=== PATIENT | male | born 1945 | race Caucasian/White ===

== ENCOUNTER 2019-12-25 07:48 | Observation (INO) | payer MEDICARE ==
[2019-12-21 10:42] LABS: BASOPHILS # (AUTO) 0.1 (0.0-0.1); BASOPHILS % 1.3 % (0.0-1.0); EOSINOPHILS # (AUTO) 0.7 (0.0-0.4); EOSINOPHILS % 12.4 % (0.0-6.0); HEMATOCRIT 45.1 % (38.2-49.6); HEMOGLOBIN 15.2 g/dL (14.0-18.0); LYMPHOCYTES # (AUTO) 1.3 (1.0-3.2); LYMPHOCYTES % 24.1 % (18.0-39.1); MEAN CORPUSCULAR HGB CONC 33.7 g/dL (31-35); MEAN CORPUSCULAR VOLUME 85.9 fL (81-99); MONOCYTES # (AUTO) 0.5 (0.2-0.8); NEUTROPHILS # (AUTO) 2.8 (2.1-6.9); PLATELET COUNT 167 x10e3/uL (140-360); RED BLOOD COUNT 5.25 x10e6/uL (4.3-5.7)
--- NOTE | 2019-12-21 10:58 | Diagnostic Imaging Report ---
EXAMINATION: CHEST 2 VIEWS INDICATION: Pre-operative COMPARISON: None FINDINGS: LINES/TUBES:None LUNGS:Lungs are mildly hyperinflated. No focal consolidation or pulmonary edema. PLEURA:No pleural effusion or pneumothorax. MEDIASTINUM:The cardiomediastinal silhouette appears normal in size and shape. BONES/SOFT TISSUES:No acute osseous injury. ABDOMEN:No free air under the diaphragm. IMPRESSION: Mildly hyperinflated lungs. No focal pneumonia or pulmonary edema. Signed by: Tyrel Hernandez MD on 12/21/2019 10:56 AM
[~2019-12-25] VITALS: Ht 175.3 cm; Wt 99.0 kg
[~2019-12-25 07:48] MED LIST: BACITRACIN 50,000 UNIT VIAL ONE; CELECOXIB200 MG PO; CENTRUM SILVER1 EAC6 PO; ECOTRIN325 MG PO; FLOMAX0.4 MG PO; LOSARTAN POTAS100 MG PO; SODIUM CHLORIDE 0.9% 500ML 500 ML ONE; TRANEXAMIC ACID 1,000 MG/10 ML ML ONE; TURMERIC1 GM PO; VANCOMYCIN HCL 1,000 MG ONE; [UNRECOGNIZED DRUG - OTHER] PO; [UNRECOGNIZED DRUG - OTHER] PO
--- OUTSIDE RECORDS SUMMARY | 2019-12-25 07:50 | XMS REPORT ---
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 Allergies, Adverse Reactions, Alerts Allergy Name Allergy Type Status Severity Reaction(s) Onset Date Inactive Date Treating Clinician Comments No Known Allergies DA Active U 2019-02-02 00:00:00 No Known Allergies DA Active U 2014-02-21 00:00:00 Medications This patient has no known medications. Encounters Start Date/Time End Date/Time Encounter Type Admission Type Attending Clinicians Care Facility Care Department Encounter ID 2018-01-31 12:00:00 Inpatient PATO MCG[facility] [place] [id number] 2018-03-14 08:02:00 2018-03-14 09:42:00 Outpatient PATO MCGEE [facility] – [place] [id number] Results Test Description Test Time Test Comments Text Results Atomic Results Result Comments CHEST 2 VIEWS 2019-12-21 10:55:00 [facility] [address] [place] [id number] Patient Name: JUNITO CAVAZOS MR #: [id number] : 1945 Age/Sex: 74/M Req #: [id number] Adm Physician: Ordered by: LIZBETH HIGH MD Report #: [id number] Location: OR Room/Bed: Procedure: [id number] DX/CHEST 2 VIEWS Exam Date: 12/21/19 Exam Time: 1021 REPORT STATUS: Signed EXAMINATION: CHEST 2 VIEWS INDICATION: Pre-operative COMPARISON: None FINDINGS: LINES/TUBES:None LUNGS:Lungs are mildly hyperinflated. No focal consolidation or pulmonary edema. PLEURA:No pleural effusion or pneumothorax. MEDIASTINUM:The cardiomediastinal silhouette appears normal in size and shape. BONES/SOFT TISSUES:No acute osseous injury. ABDOMEN:No free air under the diaphragm. IMPRESSION: Mildly hyperinflated lungs. No focal pneumonia or pulmonary edema. Signed by: Shoaib Cordero MD on 12/21/2019 10:56 AM Dictated By: SHOAIB CORDERO MD 1056 Transcribed By: PATRICK on 12/21/19 1056 COPY TO: LIZBETH HIGH MD - XR KNEE 4 + V LT 2019-12-05 12:03:00 FAX: Kenroy Ling DO [phone] [place]: [address] St: REG Name: JUNITO CAVAZOS [facility] : 1945 Age/S: 74/M [address] Unit #: [id number] Loc: [place] [address] Phys: Kenroy Ortega DO Acct: [id number] Dis Date: Status: REG CLI PHONE #: [phone] Exam Date: 12/05/2019 1114 FAX #: [phone] Reason: M25.562 EXAMS: CPT CODE: [id number] XR KNEE 4 + V LT 43528 CLINICAL HISTORY: M25.562 TECHNIQUE: 4 views of the left knee COMPARISON: None FINDINGS: There is no fracture or dislocation. There is severe narrowing of the knee joint that is most pronounced in the medial compartment. There are also small to moderate-sized osteophytes in the knee joint. Small knee joint effusion is present. IMPRESSION: Severe degenerative changes of the left knee with small joint effusion but no acute fracture. Location: [facility] at 1203 Reported and signed by: Alex Chen MD CC: Kenroy Ortega Technologist: JASS Carvalho) Trnscrd Date/Time/By: 12/05/2019 (1951) : By: [email or web address] Orig Print D/T: S: 12/05/2019 (5935) PAGE 1 Signed Report - XR HIP W/PEL UNI 2+V LT 2019-12-05 12:02:00 FAX: Kenroy Ling DO [phone] [place]: O St: REG Name: JUNITO CAVAZOS [facility] : 1945 Age/S: 74/M [address] [facility] Unit #: [id number] Loc: [place] [address] Phys: Kenroy Ortega DO Acct: [id number] Dis Date: Status: REG CLI PHONE #: [phone] Exam Date: 12/05/2019 1114 FAX #: [phone] Reason: EXAMS: CPT CODE: [id number] XR HIP W/PEL UNI 2+V LT 91148 HISTORY: Hip pain EXAM: AP pelvis as well as AP and frog-leg views of the left hip Comparison: CT of the abdomen and pelvis June 02, 2015 which includes the hips FINDINGS: No acute fracture of the bony pelvis. No diastases of the SI joints or pubic symphysis. There are degenerative changes in the bilateral hip joints. Additionally there appears to be aspherical morphology of the femoral head with a bone protrusion along the superior aspect of the femoral head. Degenerative changes are present on the lumbar spine. 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 Correlate clinically for femoral acetabular impingement. Location: [facility] at 1202 Reported and signed by: Alex Chen MD CC: Kenroy Ortega Technologist: RT Maia(Ranjan) Trnscrd Date/Time/By: 12/05/2019 (3935) : By: [email or web address] Orig Print D/T: S: 12/05/2019 (0314) PAGE 1 Signed Report - XR L-SPINE 2/3 VIEWS 2019-12-05 11:59:00 FAX: Kenroy Ling DO [phone] [place]: O St: REG Name: JUNITO CAVAZOS [facility] : 1945 Age/S: 74/M [address] [facility] Unit #: [id number] Loc: [place] [address] Phys: Kenroy Ortega DO Acct: [id number] Dis Date: Status: REG CLI PHONE #: [phone] Exam Date: 12/05/2019 1114 FAX #: [phone] Reason: EXAMS: CPT CODE: [id number] XR L-SPINE 2/3 VIEWS 20626 HISTORY: Back pain TECHNIQUE: AP, lateral, and lumbosacral views of the lumbar spine. Comparison:CT of the abdomen and pelvis June 02 which includes the lumbar spine FINDINGS: No acute fracture or subluxation. Vertebral body alignment is satisfactory. Vertebral body heights are preserved. Disc spaces are preserved. Small to moderate-sized vertebral body osteophytes are present in the lumbar spine. There is facet hypertrophy in the lower lumbar spine. No evident paraspinal soft tissue contour abnormality. IMPRESSION: Degenerative changes of the lumbar spine but no fracture or malalignment. Location: [facility] at 1159 Reported and signed by: Alex Chen MD CC: Kenroy Ortega Technologist: RT Maia(Ranjan) Trnscrd Date/Time/By: 12/05/2019 (4984) : By: [email or web address] Orig Print D/T: S: 12/05/2019 (5842) PAGE 1 Signed Report BASIC METABOLIC PANEL 2019-02-02 15:32:00 SODIUM (test code=NA) 139 mmol/L 136-145 POTASSIUM (test code=K) 4.1 mmol/L 3.5-5.1 CHLORIDE (test code=CL) 105.0 mmol/L 98-107 CARBON DIOXIDE (test code=CO2) 28.0 mmol/L 21-32 ANION GAP (test code=GAP) 10.1 10-20 GLUCOSE (test code=GLU) 95 mg/dL 74-106 BLOOD UREA NITROGEN (test code=BUN) 18 mg/dL 7-18 GLOMERULAR FILTRATION RATE (test code=GFR) 54 mL/min >=60 Estimated GFR by using Modified MDRD formula.Chronic kidney disease is defined as either kidney damageor GFR <60 mL/min/1.73 m2 for >3 months. CREATININE (test code=CREAT) 1.30 mg/dL 0.7-1.3 BUN/CREATININE RATIO (test code=BUN/CREA) 13.8 10-20 CALCIUM (test code=CA) 8.8 mg/dL 8.5-10.1 BASIC METABOLIC [id number] 15:06:00* Test Item Value Reference Range Comments SODIUM (test code=NA) 139 mmol/L 136-145 POTASSIUM (test code=K) 4.1 mmol/L 3.5-5.1 CHLORIDE (test code=CL) 105.0 mmol/L 98-107 CARBON DIOXIDE (test code=CO2) mmol/L 21-32 ANION GAP (test code=GAP) 10-20 GLUCOSE (test code=GLU) mg/dL 74-106 BLOOD UREA NITROGEN (test code=BUN) mg/dL 7-18 GLOMERULAR FILTRATION RATE (test code=GFR) mL/min >=60 CREATININE (test code=CREAT) mg/dL 0.7-1.3 BUN/CREATININE RATIO (test code=BUN/CREA) 10-20 CALCIUM (test code=CA) mg/dL 8.5-10.1 - XR KNEE 3 V [id number] 14:42:00 FAX: Won Almanza DO [place]: [address] St: REG Name: JUNITO COATES [facility] : [birth year] Age/S: 73/M [address] [facility] Unit #: [id number] Loc: [place] [address] Phys: Won Almanza DO Acct: [id number] Dis Date: Status: REG ER PHONE #: [phone] Exam Date: 02/02/2019 1420 FAX #: [phone] Reason: PAIN EXAMS: CPT CODE: [id number] XR KNEE 3 V LT [address] EXAM: Left knee, 3 views; INFORMATION: Painful swelling; FINDINGS: There is almost complete obliteration of the medial compartment of the joint space asso ciated with subchondral sclerosis and marginal osteophyte formation. Small osteophytes also seen along the superior and inferior edge of the p atella. Otherwise, imaged bones are intact; no evidence of fracture or dislocation. Periarticular soft tissues are unremarkable; no radiopaque foreign bodies. IMPRESSION: 1. Advanced osteoarth ritis of the left knee joint, involving primarily the medial compartment . 2. No evidence of acute osseous trauma. Valdemar gordon Signed by John Payne on 02/02/2019 a t 3632 Reported and signed by: Brendon Desai ch, M.D. CC: Won Almanza DO Technologist: Nan Marroquin(R); DIANA ADAMS (R) Yumiko scrd Date/Time/By: 02/02/2019 (1442) : By: Jillian Orig Print D/T: S : 02/02/2019 (5631) PAGE 1 Signed Report CBC W/AUTO [id number] 14:40:00* Test Item Value Reference Range Comments WHITE BLOOD CELL (test code=WBC) 4.8 K/mm3 4.5-12.5 RED BLOOD CELL (test code=RBC) 4.69 mill/mm3 4.0-5.8 HEMOGLOBIN (test code=HGB) 13.5 gram/dL 13.0-17.5 HEMATOCRIT (test code=HCT) 41.6 % 42.0-52.0 MEAN CELL VOLUME (test code=MCV) 88.7 fL 80-98 MEAN CELL HGB (test code=MCH) 28.6 picogram 27.0-33.0 MEAN CELL HGB CONCETRATION (test code=MCHC) 32.2 gram/dL 33.0-36.0 RED CELL DISTRIBUTION WIDTH (test code=RDW) 12.9 % 11.6-16.2 RED CELL DISTRIBUTION WIDTH SD (test code=RDW-SD) 42.1 fL 37.0-51.0 PLATELET COUNT (test code=PLT) 138 K/mm3 150-450 MEAN PLATELET VOLUME (test code=MPV) 10.1 fL 6.7-11.0 NEUTROPHIL % (test code=NT%) 50.7 % 39.0-69.0 IMMATURE GRANULOCYTE % (test code=IG%) 0.2 % 0.0-5.0 LYMPHOCYTE % (test code=LY%) 24.2 % 25.0-55.0 MONOCYTE % (test code=MO%) 10.6 % 0.0-10.0 EOSINOPHIL % (test code=EO%) 13.3 % 0.0-5.0 BASOPHIL % (test code=BA%) 1.0 % 0.0-1.0 NUCLEATED RBC % (test code=NRBC%) 0.0 % 0-0 NEUTROPHIL # (test code=NT#) 2.45 K/mm3 1.8-7.7 IMMATURE GRANULOCYTE # (test code=IG#) 0.01 x10 3/uL 0-0.03 LYMPHOCYTE # (test code=LY#) 1.17 K/mm3 1.0-5.0 MONOCYTE # (test code=MO#) 0.51 K/mm3 0-0.8 EOSINOPHIL # (test code=EO#) 0.64 K/mm3 0.0-0.5 BASOPHIL # (test code=BA#) 0.05 K/mm3 0.0-0.2 NUCLEATED RBC # (test code=NRBC#) 0.00 K/mm3 0.0-0.1 MANUAL DIFF REQUIRED (test code=MDIFF) NO CBC W/AUTO [id number] 14:33:00* Test Item Value Reference Range Comments WHITE BLOOD CELL (test code=WBC) K/mm3 4.5-12.5 RED BLOOD CELL (test code=RBC) mill/mm3 4.0-5.8 HEMOGLOBIN (test code=HGB) 13.5 gram/dL 13.0-17.5 HEMATOCRIT (test code=HCT) % 42.0-52.0 MEAN CELL VOLUME (test code=MCV) fL 80-98 MEAN CELL HGB (test code=MCH) picogram 27.0-33.0 MEAN CELL HGB CONCETRATION (test code=MCHC) gram/dL 33.0-36.0 RED CELL DISTRIBUTION WIDTH (test code=RDW) % 11.6-16.2 RED CELL DISTRIBUTION WIDTH SD (test code=RDW-SD) fL 37.0-51.0 PLATELET COUNT (test code=PLT) K/mm3 150-450 MEAN PLATELET VOLUME (test code=MPV) fL 6.7-11.0 NEUTROPHIL % (test code=NT%) % 39.0-69.0 IMMATURE GRANULOCYTE % (test code=IG%) % 0.0-5.0 LYMPHOCYTE % (test code=LY%) % 25.0-55.0 MONOCYTE % (test code=MO%) % 0.0-10.0 EOSINOPHIL % (test code=EO%) % 0.0-5.0 BASOPHIL % (test code=BA%) % 0.0-1.0 NEUTROPHIL # (test code=NT#) K/mm3 1.8-7.7 LYMPHOCYTE # (test code=LY#) K/mm3 1.0-5.0 MONOCYTE # (test code=MO#) K/mm3 0-0.8 EOSINOPHIL # (test code=EO#) K/mm3 0.0-0.5 BASOPHIL # (test code=BA#) K/mm3 0.0-0.2
[2019-12-25] MEDS ORDERED: ROPIVACAINE 246.25 MG, EPINEPHRINE HCL 1:1000 1ML 0.5 MG, CLONIDINE HCL 0.08 MG, KETORO... INJ ONE ×5 (08:00)
[2019-12-25] MEDS ORDERED: DEXAMETHASONE SOD PHOS 10 MG/1 ML VIAL ONE (09:01)
[2019-12-25] MEDS ORDERED: GABAPENTIN 300 MG CAP ONE (09:01)
[2019-12-25] MEDS ORDERED: CELECOXIB 200 MG CAP ONE (09:01)
[2019-12-25] MEDS ORDERED: CEFAZOLIN SOD 1 GM/NS 50ML 100 ML IV ONE (09:02)
[2019-12-25] MEDS ORDERED: ALBUMIN 25% 12.5GM 50ML 200 ML IV ONE (11:56)
[2019-12-25] MEDS ORDERED: DIPHENHYDRAMINE HCL INJ 50 MG/ML VIAL IM/IV PRN (13:00)
[2019-12-25] MEDS ORDERED: PROMETHAZINE HCL (IM) 25 MG/ML VIAL INJ PRN (13:00)
[2019-12-25] MEDS ORDERED: DOCUSATE SODIUM 100 MG CAP PO PRN (13:00)
[2019-12-25] MEDS ORDERED: ACETAMINOPHEN 650 MG SUPP PR PRN (13:00)
[2019-12-25] MEDS ORDERED: ZOLPIDEM TARTRATE 5 MG TAB PO PRN (13:00)
[2019-12-25] MEDS ORDERED: HYDROCODONE/APAP 7.5MG-325MG 1 EA TAB PO PRN (13:00)
[2019-12-25] MEDS ORDERED: ONDANSETRON HCL INJ 2MG/ML 2ML 2 MG/ML VIAL IV PRN (13:00)
[2019-12-25] MEDS ORDERED: HYDROCODONE/APAP 5MG-325MG TAB PO PRN (13:00)
[2019-12-25] MEDS ORDERED: KETOROLAC TROMETHAMINE 30 MG/ML VIAL IV PRN (13:00)
[2019-12-25] MEDS ORDERED: FENTANYL CITRATE/PF 100MCG/2 ML INJ ONE ×2 (13:30→18:50)
[2019-12-25] MEDS ORDERED: HYDROMORPHONE 1MG/1ML INJ ONE (13:46)
--- NOTE | 2019-12-25 16:10 | Diagnostic Imaging Report ---
Exam: Left knee 2 views Clinical history: Postop Findings: The patient is status post left total knee arthroplasty. The joint prosthesis appear in its expected location. There is no evidence of acute fracture or malalignment. Impression: 1. Status post left total knee arthroplasty with postoperative changes. Signed by: Dr. Romulo Vasquez MD on 12/25/2019 4:08 PM
[2019-12-25] MEDS: ASPIRIN 325 MG TAB PO SCH (17:00)
[2019-12-25] MEDS ORDERED: ACETAMINOPHEN 1000 MG/100 ML IV SCH (18:00)
--- NOTE | 2019-12-25 18:20 | NUR ---
Received patient from PACU patient arrived in stretcher able to transfer from stretcher to bed used weight bearing leg and bunny hop, patient is alert and oriented x3, verbalizing needs, denies pain rating 0/10 patient does have a left knee block, placed on foot pumps per order and notified Dr. Heard for medical management. Patient oriented to room and use of call light instructed to call when needing assistance verbalized understanding. Belongings and call light within reach bed in low position breaks on.
[2019-12-25] MEDS ORDERED: ROPIVACAINE 0.5% 5 MG/ML 30 ML SDV ONE (18:46)
[2019-12-25] MEDS ORDERED: PROMETHAZINE 12.5MG/ NACL 0.9% 50 ML IV PRN (19:00)
[2019-12-25 19:17] VITALS: BP 111/62
--- NOTE | 2019-12-25 19:18 | NUR ---
Handoff report to oncoming nurse made aware patient is orthopedic patient, and has orders to be place on CPM, verbalized understanding.
[2019-12-25 19:22] VITALS: BP 111/62
[2019-12-25 19:25] VITALS: BP 111/62
[2019-12-25] MEDS: CEFAZOLIN SOD 1 GM/NS 50ML 50 ML IV SCH (19:35)
[2019-12-25] MEDS: ACETAMINOPHEN 1000 MG/100 ML 100 ML IV SCH (19:35)
[2019-12-25] MEDS: CELECOXIB 100 MG CAP PO SCH (19:35)
[2019-12-25] MEDS: SODIUM CHLORIDE 0.9% 1000ML 1,000 ML IV SCH (19:35)
[2019-12-25 21:00] VITALS: BP 111/62
[2019-12-26] MEDS: SODIUM CHLORIDE 0.9% 1000ML 1,000 ML IV SCH ×2 (00:26→07:04)
[2019-12-26] MEDS: ACETAMINOPHEN 1000 MG/100 ML 100 ML IV SCH ×2 (00:53→06:59)
[2019-12-26 01:13] VITALS: BP 130/75
[2019-12-26] MEDS: CEFAZOLIN SOD 1 GM/NS 50ML 50 ML IV SCH ×2 (03:00→10:30)
[2019-12-26 04:00] VITALS: BP 156/97
[2019-12-26 05:08] LABS: HEMATOCRIT 37.6 % (38.2-49.6); HEMOGLOBIN 12.7 g/dL (14.0-18.0)
[2019-12-26 07:24] VITALS: BP 149/88
[2019-12-26 07:27] VITALS: BP 149/88
[2019-12-26] MEDS: CELECOXIB 100 MG CAP PO SCH (08:09)
[2019-12-26] MEDS: ASPIRIN 325 MG TAB PO SCH (08:09)
[2019-12-26 08:35] VITALS: BP 146/64
--- NOTE | 2019-12-26 08:42 | NUR ---
DR BARDALES OFFICE PREARRANGED FOLLOWING DISCHARGE PLAN OF: RETURNING [id number], [facility] [phone] HOME HEALTH WITH HOME CARE PROVIDERS CONFIRMED WITH FÁTIMA IN PERSON DME CPM AND ROLLING WALKER WITH WHEELS. PROVIDED BY [email or web address] [phone] TERRANCE SIGNED AND ON CHART COPY LEFT WITH PATIENT GAVE CARD FOR QUESTIONS AND OR CONCERNS.
[2019-12-26] MEDS ORDERED: LOSARTAN POTASSIUM 100 MG TAB PO SCH (09:00)
[2019-12-26] MEDS ORDERED: TAMSULOSIN HCL 0.4 MG CAP PO SCH (09:00)
[2019-12-26 10:39] VITALS: BP 142/85
--- NOTE | 2019-12-26 12:14 | Consultation ---
DATE OF CONSULTATION: 12/26/2019 REASON FOR CONSULTATION: Postoperative medical management. HISTORY OF PRESENT ILLNESS: The patient is a 74-year-old gentleman, status post left knee arthroplasty for end-stage arthritis of the left knee. He is doing well postoperatively and complains of minimal pain. He denies any fever, chills, nausea, vomiting, headache, shortness of breath, or dizziness on review of systems. PAST MEDICAL HISTORY: Hypertension, BPH, and osteoarthritis. MEDICATIONS: 1. Flomax. 2. Losartan. 3. Celebrex. 4. Tessalon Perles. SOCIAL HISTORY: He is a nonsmoker and nondrinker. FAMILY HISTORY: Noncontributory. ALLERGIES: NONE. PHYSICAL EXAMINATION: VITAL SIGNS: Temperature 97.0, pulse 75, blood pressure 156/97, sats 98% on room air. GENERAL: No apparent distress. NECK: Supple. CARDIOVASCULAR: Regular rate and rhythm. LUNGS: Clear to auscultation bilaterally. ABDOMEN: Good bowel sounds. Soft, nontender. EXTREMITIES: No clubbing, cyanosis. NEUROLOGIC: Nonfocal. ASSESSMENT/PLAN: 1. Left knee pain, continue with pain control. 2. Anemia, we will check CBC. 3. Hypertension, continue with current medicines. 4. Benign prostatic hyperplasia, we will continue with Flomax. 5. Obesity, continue with diet. Please see hospital chart for full details. MD TIFFANY Interiano/HAYDEE /[id number]
[2019-12-26] MEDS ORDERED: ACETAMINOPHEN 1000 MG/100 ML IV PRN (13:00)
--- NOTE | 2019-12-26 15:36 | Operative Report ---
DATE OF PROCEDURE: 12/25/2019 SURGEON: Andres Dale MD HEAD OF MATHEMATICS: Tim Shearer, certified PA. PREOPERATIVE DIAGNOSIS: Osteoarthritis, left knee. POSTOPERATIVE DIAGNOSIS: Osteoarthritis, left knee. PROCEDURE: Left total knee arthroplasty. INDICATIONS: The patient is a 74-year-old gentleman, who has end-stage arthritis of his left knee. He has failed conservative management and would like to proceed with a left total knee replacement. The risks and benefits have been discussed. He states he understands and wishes to proceed. PROCEDURE IN DETAIL: The patient was brought to the operating room and placed under general anesthetic. He received a regional block, prophylactic antibiotics, and tranexamic acid in the holding area. His left lower extremity was prepped and draped in a sterile manner. A preoperative time-out was performed. The extremity was exsanguinated and a proximal tourniquet was inflated to 300 mmHg. An anterior incision with a medial parapatellar arthrotomy was performed. Clear synovial fluid was removed from the joint. Soft tissue releases were performed to bring the knee up into flexion with the patella everted. Meniscal remnants, the cruciate ligaments, and marginal osteophytes were all removed. A [employer] Crateet Persona Knee System was used. An extramedullary cutting guide was used to resect the proximal tibia. The tibial base plate was a size G. The central fin punch was drilled and impacted. Attention was directed towards the distal femur. An intramedullary cutting guide was used to resect the distal femur in 6 degrees of valgus and rotation referencing off a combination of landmarks including Whitesides line, the epicondylar axis, and the posterior condyles. The femoral component was a size 11. The anterior and posterior cuts were made. A trial reduction was performed. A 10 mm medial congruent tibial insert provided appropriate soft tissue balancing in full extension and 90 degrees of flexion. The patella was then resurfaced with a 32 mm x 9.5 mm patellar button. The thickness was checked before and after and was right around 26 mm. Patellar tracking was concentric. All of the trial implants were then removed. A 100 mL premixed pericapsular ARTIS injection was placed into the surrounding soft tissue. The knee was thoroughly irrigated with a shower tip pulsatile lavage. All bone cuts had been irrigated with a spray mixture of diluted polymyxin and vancomycin spray. The components were cemented into place using a single mix of high viscosity Biomet cement preloaded with gentamicin. The extravasated cement was carefully removed. The wound was further irrigated with a pulsatile lavage while the cement cured. The arthrotomy was then carefully closed using interrupted #1 Ethibond. A 500 mg of vancomycin powder was sprinkled into the joint prior to closure. The knee was put through flexion and extension to ensure a secured closure. The skin was carefully closed with subcuticular Vicryl and randy. A sterile Aquacel bandage was applied. The patient was extubated and transported to the recovery room in stable condition. Blood loss was minimal. All needle and sponge counts were correct. Andres Dale MD DR/HAYDEE /[id number]
[2019-12-26] MEDS ORDERED: CELECOXIB 200 MG CAP PO SCH (17:00)
== END 2019-12-26 11:30 | disposition home or self-care (01) ==
LOC: OR 07:48 → PACU V 12:58 → IMCU 18:29
PROVIDERS: ADMIT Specialist; ATTEND Specialist
DX: M17.11 Unilateral primary osteoarthritis, right knee (principal); I10 Essential (primary) hypertension; N40.0 Benign prostatic hyperplasia without lower urinary tract symptoms; D64.9 Anemia, unspecified; E66.9 Obesity, unspecified; Z68.32 Body mass index [BMI] 32.0-32.9, adult
CPT/HCPCS: 27447; 36415 ×2; 71046; 73560; 82948; 85014; 85018; 85025; 86850; 86900; 86920; 93005; 97116 ×2; 97161; C1713 ×2; C1776 ×3; G0378 ×2; J0131 ×2; J0171; J0690 ×2; J1100; J1170; J1885; J2795; J3010; J3370; J7030; J7040

== ENCOUNTER 2020-02-12 13:39 | Outpatient (RCR) | payer MEDICARE ==
[~2020-02-12 13:39] MED LIST changes: -BACITRACIN 50,000 UNIT VIAL ONE; -SODIUM CHLORIDE 0.9% 500ML 500 ML ONE; -TRANEXAMIC ACID 1,000 MG/10 ML ML ONE; -VANCOMYCIN HCL 1,000 MG ONE
== END 2020-02-13 ==
LOC: PT 13:39
PROVIDERS: ATTEND Specialist
DX: Z96.652 Presence of left artificial knee joint (principal); M25.562 Pain in left knee; M25.662 Stiffness of left knee, not elsewhere classified; M62.81 Muscle weakness (generalized); R26.2 Difficulty in walking, not elsewhere classified

== ENCOUNTER 2020-03-13 13:41 | Outpatient (RCR) | payer MEDICARE | END 2020-03-14 | LOC: PT 13:41 | PROVIDERS: ATTEND Specialist | DX: Z96.652 Presence of left artificial knee joint (principal); M25.562 Pain in left knee; M25.662 Stiffness of left knee, not elsewhere classified; M62.81 Muscle weakness (generalized); R26.2 Difficulty in walking, not elsewhere classified ==

== ENCOUNTER 2020-04-05 12:55 | Outpatient (RCR) | payer MEDICARE | END 2020-04-14 | LOC: PT 12:55 | PROVIDERS: ATTEND Specialist | DX: Z96.652 Presence of left artificial knee joint (principal); M62.81 Muscle weakness (generalized); R26.2 Difficulty in walking, not elsewhere classified; M25.562 Pain in left knee; M25.662 Stiffness of left knee, not elsewhere classified ==

== ENCOUNTER → 2025-02-21 | Outpatient (REF) | payer OTHER | LOC: RAD 10:22 | PROVIDERS: ATTEND Internal Medicine | DX: I35.1 Nonrheumatic aortic (valve) insufficiency (principal); I07.1 Rheumatic tricuspid insufficiency | CPT/HCPCS: 93306 ==